=== PATIENT | female | born 1990 | race Hispanic/Latino ===

== ENCOUNTER → 2019-03-05 | Outpatient (CLI) | payer OTHER ==
--- NOTE | 2019-03-05 13:44 | Diagnostic Imaging Report ---
Thyroid ultrasound and soft tissue ultrasound of the bilateral neck History: Right-sided neck pain, hypothyroidism. Comparison: None Findings: The thyroid echotexture is normal. Vascularity is normal. The right lobe measures 4.0 x 1.2 x 1.7 cm. There is a tiny 5 mm anechoic cyst within the right thyroid lobe (TR 1 ; 0 points). The left lobe measures 4.1 x 1.3 x 1.3 cm. The isthmus measures 0.2 cm. No cervical lymph nodes are identified. No evidence of soft tissue mass in the neck bilaterally. Parathyroids: Not visualized. IMPRESSION: No evidence of solid mass in the bilateral neck / thyroid gland. Tiny 5 mm cyst within the right thyroid lobe, consistent with benign etiology. Signed by: Dr. Kain Medeiros MD on 03/05/2019 1:41 PM
== END ==
LOC: US 12:57
PROVIDERS: ATTEND Family Medicine
DX: M54.2 Cervicalgia (principal); E03.9 Hypothyroidism, unspecified
CPT/HCPCS: 76536

== ENCOUNTER 2024-09-03 22:16 | Emergency (ER) | payer BC, OTHER ==
[~2024-09-03] VITALS: Ht 154.9 cm; Wt 65.8 kg
[2024-09-03 22:22] VITALS: TEMP 98.5
[2024-09-03 22:49] LABS: BASOPHILS % 0.1 % (0.0-1.0); EOSINOPHILS # (AUTO) 0.4 (0.0-0.4); HEMATOCRIT 38.8 % (34.2-44.1); HEMOGLOBIN 12.4 g/dL (12.0-16.0); LYMPHOCYTES # (AUTO) 3.3 (1.0-3.2); LYMPHOCYTES % 36.8 % (18.0-39.1); MEAN CORPUSCULAR HEMOGLOBIN 27.5 pg (28-32); MONOCYTES # (AUTO) 0.7 (0.2-0.8); MONOCYTES % 8.2 % (4.4-11.3); NEUTROPHILS # (AUTO) 4.6 (2.1-6.9); NEUTROPHILS % 50.7 % (38.7-80.0); PLATELET COUNT 301 x10e3/uL (140-360); RED BLOOD COUNT 4.51 x10e6/uL (3.6-5.1); RED CELL DISTRIBUTION WIDTH 13.1 % (11.7-14.4); WHITE BLOOD COUNT 9.07 x10e3/uL (4.8-10.8)
[2024-09-03] MEDS: DICYCLOMINE HCL 20 MG/2 ML VIAL IM ONE (23:01)
[2024-09-03] MEDS: SODIUM CHLORIDE FLUSH 10 ML SYR INJ PRN (23:01)
[2024-09-03 23:12] LABS: ALBUMIN 4.2 g/dL (3.5-5.0); ALBUMIN/GLOBULIN RATIO 1.3 (0.8-2.0); ANION GAP 13.7 mmol/L (8-16); BILIRUBIN,TOTAL 0.1 mg/dL (0.2-1.2); CALCIUM 9.8 mg/dL (8.4-10.2); CREATININE, SERUM 0.86 mg/dL (0.57-1.11); POTASSIUM 3.7 mmol/L (3.5-5.1); TOTAL PROTEIN 7.5 g/dL (6.5-8.1)
[2024-09-04 00:05] VITALS: BP 140/89; PULSE 78; RESP 16; TEMP 98.3
[2024-09-04] MEDS ORDERED: ONDANSETRON ODT4 MG SL (00:39)
[2024-09-04] MEDS ORDERED: PANTOPRAZOLE SO40 MG PO (00:39)
[2024-09-04] MEDS ORDERED: DICYCLOMINE HCL20 MG PO (00:39)
[2024-09-04 01:00] VITALS: PULSE 83; RESP 16; O2SAT 99
== END 2024-09-04 01:24 | disposition home or self-care (01) ==
LOC: ER 22:34
DX: R10.13 Epigastric pain (principal); K76.0 Fatty (change of) liver, not elsewhere classified
CPT/HCPCS: 36415; 76705; 80053; 83690; 85025; 99284; J0500; J2470